=== PATIENT | female | born 1945 | race Caucasian/White ===

== ENCOUNTER 2020-07-26 22:47 | Emergency (ER) | payer OTHER ==
[~2020-07-26] VITALS: Ht 165.1 cm; Wt 55.8 kg
--- NOTE | 2020-07-26 23:00 | NUR ---
AUDREY 89 FROM HOME FOR C/O R HIP AND R SHOULDER PAIN S/P FALL FROM 3- STEP STOOL & LANDED ON HER R SIDE. +HITTING HEAD "BUT NOT HARD". - H/A
[2020-07-27] MEDS ORDERED: IBUPROFEN 400 MG TABLET ONE
[2020-07-27] MEDS: IBUPROFEN 400 MG TABLET PO ONE (00:01)
--- NOTE | 2020-07-27 00:03 | NUR ---
pt is medcially stable for d/c, Patient discharged to home in stable condition. Rx and Written and verbal after care instructions given. Patient verbalizes understanding of instruction.
[2020-07-27 00:04] VITALS: BP 144/78
== END 2020-07-27 00:03 | disposition home or self-care (01) ==
LOC: ER 23:02
DX: S40.011A Contusion of right shoulder, initial encounter (principal); S09.8XXA Other specified injuries of head, initial encounter; M19.90 Unspecified osteoarthritis, unspecified site; M25.551 Pain in right hip; E03.9 Hypothyroidism, unspecified; Z96.643 Presence of artificial hip joint, bilateral; W10.8XXA Fall (on) (from) other stairs and steps, initial encounter; Y93.89 Activity, other specified; Y92.89 Other specified places as the place of occurrence of the external cause; Y99.8 Other external cause status
CPT/HCPCS: 70450-TC; 73030-TC; 73502